=== PATIENT | female | born 1960 | race Caucasian/White ===

== ENCOUNTER 2018-09-16 08:26 | Inpatient (IN) ==
--- NOTE | 2018-08-30 09:01 | PAT Medication Instructions ---
Medication Instructions Date of Service August 30, 2018 Home Medications albuterol sulfate [ProAir HFA] 2 puff INHALATION QID PRN anastrozole 1 mg PO QAM calcium carbonate [Calcium 600] 600 mg PO QAM cholecalciferol (vitamin D3) 1,000 unit PO BID cyanocobalamin (vitamin B-12) 1,000 mcg PO TID digoxin 250 mcg PO QAM levothyroxine 150 mcg PO QAM ASK your prescriber and surgeon anastrozole 1 mg PO QAM DO NOT take the morning of surgery calcium carbonate [Calcium 600] 600 mg PO QAM cholecalciferol (vitamin D3) 1,000 unit PO BID cyanocobalamin (vitamin B-12) 1,000 mcg PO TID Take morning of surgery With a small sip of water, OTHERWISE NOTHING TO EAT OR DRINK AFTER MIDNIGHT: albuterol sulfate [ProAir HFA] 2 puff INHALATION QID PRN (use if needed; please bring with you to hospital day of surgery if possible) digoxin 250 mcg PO QAM levothyroxine 150 mcg PO QAM Take evening before surgery albuterol sulfate [ProAir HFA] 2 puff INHALATION QID PRN (if needed) cholecalciferol (vitamin D3) 1,000 unit PO BID cyanocobalamin (vitamin B-12) 1,000 mcg PO TID Other Notes If you have any questions please call us at [phone] or [phone] or [phone] or [phone]
--- NOTE | 2018-08-30 09:32 | Anesthesiology Consultation ---
Date of Service August 30, 2018 Assessment & Plan (1) Encounter for pre-operative examination: Chart Review Chart Review: Acceptable Risk for Surgery and Patient seen in Pre Admission Testing Consults Requested medical (Dr. Villalobos (09/11)) Patient was seen by PCP's office on 09/11/18 for preoperative evaluation. Per note from this visit, "Patient is optimized for right hip replacement". Teaching & Discussion Pre-Anesthesia Teaching/Discussion Notes: Instructed NPO after midnight before s urgery, except medications with 15 cc of water. Medication instructions provided according to the PAT guidelines. History Surgery Operation Date: 09/16/18 08:20 Proposed Procedures p Right Total Hip Arthroplasty - Jhonny Yoon Height/Weight Height: 5 ft 3 in Weight: 66.2 kg Allergies Allergy/AdvReac Type Severity Reaction Status Date / Time No Known Allergies Allergy Verified 08/26/18 10:00 Medications Home Medications Medication Instructions Recorded Confirmed Last Taken albuterol sulfate [ProAir HFA] 2 puff INHALATION QID PRN 08/26/18 08/26/18 Unknown anastrozole 1 mg PO QAM 08/26/18 08/26/18 Unknown calcium carbonate [Calcium 600] 600 mg PO QAM 08/26/18 08/26/18 Unknown cholecalciferol (vitamin D3) 1,000 unit PO BID 08/26/18 08/26/18 Unknown [Vitamin D3] cyanocobalamin (vitamin B-12) 1,000 mcg PO TID 08/26/18 08/26/18 Unknown [Vitamin B-12] digoxin 250 mcg PO QAM 08/26/18 08/26/18 Unknown levothyroxine 150 mcg PO QAM 08/26/18 08/26/18 Unknown Past Medical History Medical History Asthma History of breast cancer 2018 Hypothyroidism Mitral valve prolapse Osteoarthritis Past Surgical History Surgical History History of bilateral tubal ligation History of herniorrhaphy umbilical hernia repair as a child History of lumpectomy of left breast History of tonsillectomy History of tooth extraction WISDOM TEETH EXTRACTION Past Anesthesia History No Hx of Anesthesia Complications and No Family Hx of Anesthesia Complications History of PONV No Motion Sickness Screening History of Motion Sickness: No Social History Smoking Status: Never smoker Do You Dip or Chew Tobacco: No Hx Alcohol Use: Yes alcohol intake frequency: holidays/special occasions only Alcohol Intake Frequency Comment: VERY RARE Hx Substance Use: No substance use type: does not use Exercise / Class Metabolic Activity II 4-5 Yardwork/Stairs/Walk up hill ([employer]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 Able to climb stairs. Denies CP or SOB. ) Review of Systems Patient denies chest pain, shortness of breath, dyspnea on exertion, reflux, cough, wheezing, palpitations. +Joint Pain (Hip, Wrists) Physical Exam Vital Signs BP: 107/73 P: 76 R: 16 T: 98.1 SPO2: 97% on RA ENMT Thyromental Distance: < 3.5 Finger Breadths (3) Mallampati Class: II Extra tissue under tongue Neck normal visual inspection and trachea midline; neck extension not limited Respiratory normal respiratory effort Auscultation: lungs clear to auscultation bilaterally Cardiovascular Rate/Rhythm: regular rate and regular rhythm Heart Sounds: + murmur (2/6 systolic murmur) Vessels: no carotid bruit Neurologic moves all extremities Psychiatric Orientation: alert and oriented x 3 Testing Electrocardiogram Date: 08/30/18 Findings: + NSR @ (74) Right atrial enlargement. T wave abnormality, consider anterior ischemia. (No change from outside EKG which was done on 06/14/17, stress test - attached below - was normal) Chest X-Ray Date: 08/30/18 Findings: + NAD FINDINGS: Small left retrocardiac lobular density is indeterminate but favors a hiatus hernia. Otherwise, the lungs are clear. No pleural effusions. No pneumothorax. The heart is normal in size. Surgical clips noted within the left breast. IMPRESSION: 1. No acute process within the chest. 2. Small left retrocardiac lobular density is indeterminate but favors a hiatus hernia. Stress Test Date: 06/21/17 Type: nuclear (Lexiscan) The HR response to Lexiscan is normal, the BP response is nonspecific. The resting EKG reveals a sinus rhythm. There is ST flattening and T-wave inversions in the anterior leads at baseline; with Lexiscan, there is pseudonormalization of these changes. There are no significant ST-T changes seen as compared to the baseline. Impression: Lexiscan stress EKG is not indicative of ischemia. Laboratory Results 08/30/18 09:14 08/30/18 09:14 Blood Type O Positive 08/30/18 09:14 Antibody Screen NEGATIVE 08/30/18 09:14 PT 10.5 Seconds (9.0-12.0) 08/30/18 09:14 INR 1.0 (0.9-1.1) 08/30/18 09:14 APTT 24.8 Seconds (21.0-31.0) 08/30/18 09:14 Urine Color Yellow 08/30/18 09:14 Urine Appearance Clear (Clear) 08/30/18 09:14 Urine pH 7.5 (4.5-7.5) 08/30/18 09:14 Ur Specific [place] 1.017 (1.000-1.030) 08/30/18 09:14 Urine Protein Negative (Negative) 08/30/18 09:14 Urine Glucose (UA) Negative (Negative) 08/30/18 09:14 Urine Ketones Negative (Negative) 08/30/18 09:14 Urine Nitrite Negative (Negative) 08/30/18 09:14 Ur Leukocyte Esterase Trace (Negative) H 08/30/18 09:14 Urine WBC (Auto) 1-5 /hpf (0-5) 08/30/18 09:14 Urine RBC (Auto) 0-4 /hpf (0-4) 08/30/18 09:14 U Hyaline Cast (Auto) 0 /lpf (0-5) 08/30/18 09:14 U Epithel Cells (Auto) 0-5 /lpf (0-5) 08/30/18 09:14 Urine Bacteria (Auto) Negative (Negative) 08/30/18 09:14 08/30/18 09:14 Urine Culture - Final Urine,Clean Catch Three types of organisms present, all low counts probable skin phuc. No further identifications or sensitivities to follow.
--- NOTE | 2018-08-30 10:19 | XRay Report ---
XR chest Pre-admission PA/Lat HISTORY: Preop. COMPARISON: None. FINDINGS: Small left retrocardiac lobular density is indeterminate but favors a hiatus hernia. Otherw ise, the lungs are clear. No pleural effusions. No pneumothorax. The heart is normal in size. Surgica l clips noted within the left breast. IMPRESSION: 1. No acute process within the chest. 2. Small left retrocardiac lobular density is indeterminate but favors a hiatus hernia. Electronically signed by: Xavier Fairbanks M.D. 08/30/2018 10:17 AM
[2018-08-30 10:28] LABS: Basophils # (auto) 0.02 K/uL (0-0.2); Basophils % (auto) 0.5 %; Eosinophils # (auto) 0.22 K/uL (0-0.5); Hematocrit (blood only) 43.1 % (37-47); Hemoglobin 14.5 g/dL (12.0-16.0); Immature Granulocytes # (auto) 0.01 K/uL (0.00-0.02); Immature Granulocytes % (auto) 0.2 %; Lymphocytes # (auto) 1.12 K/uL (1.2-3.4); Lymphocytes % (auto) 25.3 %; Mean Corpuscular Hgb Conc 33.6 g/dL (32-36); Mean Platelet Volume 9.2 fL (7.4-10.4); Monocytes # (auto) 0.28 K/uL (0.11-0.59); Monocytes % (auto) 6.3 %; Neutrophils # (auto) 2.77 K/uL (1.4-6.5); Neutrophils % (auto) 62.7 %; Platelet Count 247 K/uL (130-400); RDW Coefficient of Variation 13.5 % (11.5-14.5); RDW Standard Deviation 44.2 fL (36.4-46.3); Red Blood Count 4.84 M/uL (4.2-5.4); White Blood Count 4.42 K/uL (4.8-10.8)
[2018-08-30 10:31] LABS: Appearance Urine Clear (Clear); Bacteria Urine Automated Negative (Negative); Bilirubin Urine Negative (Negative); Blood Urine Negative (Negative); Cast Urine Automated 0 /lpf (0-5); Color Urine Yellow; Epithelial Cell Urine Auto 0-5 /lpf (0-5); Glucose Urine UA Negative (Negative); Ketones Urine Negative (Negative); Leukocyte Esterase Urine Trace (Negative); Nitrite Urine Negative (Negative); Protein Urine Negative (Negative); RBC Urine Automated 0-4 /hpf (0-4); Specific Gravity Urine 1.017 (1.000-1.030); Urobilinogen Urine Negative (Negative); pH Urine 7.5 (4.5-7.5)
[2018-08-30 10:34] LABS: Albumin Level 3.3 gm/dl (3.4-5.0); BUN Creatinine Ratio 19.6 (10-20); Calcium 9.3 mg/dl (8.5-10.1); Creatinine Clr Calc Pharmacy 79.3 ml/min; Est GFR (African American) 109.7; Est GFR (Non-African American) 94.6
[2018-08-30 10:37] LABS: Albumin Globulin Ratio 0.9 (0.9-2); Bilirubin,Total 0.3 mg/dl (0.2-1); Globulin 3.8 gm/dl (2.5-4.0); Total Protein 7.1 gm/dl (6.4-8.2)
[2018-08-30 10:39] LABS: Partial Thromboplastin Ratio 0.9; Partial Thromboplastin Time 24.8 Seconds (21.0-31.0); Prothrombin Time 10.5 Seconds (9.0-12.0)
--- NOTE | 2018-09-14 14:31 | History & Physical Report ---
Date of Service September 14, 2018 Assessment & Plan (1) Degenerative joint disease of right hip: plan is to admit and undergo right lokesh. History of Present Illness Chief Complaint: right hip pain Primary Care Provider: Tia Genao Pt with pain for years in right hip. Has tried nsaid, injections, and therapy with no relief. pt is ready for lokesh right. Allergies Allergy/AdvReac Type Severity Reaction Status Date / Time No Known Allergies Allergy Verified 08/26/18 10:00 Home Medications Home Medications Medication Instructions Recorded Confirmed Type albuterol sulfate [ProAir HFA] 2 puff INHALATION QID PRN 08/26/18 08/26/18 History anastrozole 1 mg PO QAM 08/26/18 08/26/18 History calcium carbonate [Calcium 600] 600 mg PO QAM 08/26/18 08/26/18 History cholecalciferol (vitamin D3) 1,000 unit PO BID 08/26/18 08/26/18 History [Vitamin D3] cyanocobalamin (vitamin B-12) 1,000 mcg PO TID 08/26/18 08/26/18 History [Vitamin B-12] digoxin 250 mcg PO QAM 08/26/18 08/26/18 History levothyroxine 150 mcg PO QAM 08/26/18 08/26/18 History Past Med/Surg History Medical History Asthma History of breast cancer 2018 Hypothyroidism Mitral valve prolapse Osteoarthritis Surgical History History of bilateral tubal ligation History of herniorrhaphy umbilical hernia repair as a child History of lumpectomy of left breast History of tonsillectomy History of tooth extraction WISDOM TEETH EXTRACTION Social History Preferred Language: Syrian Communication Ability: Effective Public Health Staff Nurse Required: No Beliefs That Will Affect Care: None Current Living Situation: Spouse Other Information That Helps Us Care for You: No Feels Safe at Home: Yes Safety Concerns: Feels Safe At This Time Smoking Status: Never smoker Do You Dip or Chew Tobacco: No Second Hand Exposure: No Tobacco Cessation Education Requested by Patient: No Hx Alcohol Use: Yes Hx Substance Use: No Review of Systems All systems reviewed & are unremarkable except as noted in HPI & below Physical Exam Constitutional: WD/WN, vitals as above Respiratory: normal respiratory effort, lungs clear to auscultation Cardiovascular: RRR, no murmur, no edema Gastrointestinal (Abdomen): normal bowel sounds, soft, nontender, no hepatosplenomegaly Musculoskeletal: Hip: + limited ROM of hip and + hip ROM with crepitation
[~2018-09-16 08:26] MED LIST: ACETAMINOPHEN 500 MG TAB PO SCH; BUPIVACAINE 0.5 % 5 MG/1 ML PF 10ML VIAL ONE; CEFAZOLIN 1000MG 1,000 MG/7.5 ML SYR IV SCH; CeleBREX 200 MG CAP PO SCH; FAMOTIDINE 20 MG TAB PO SCH; LR 500ML BOLUS, THEN 15ML/HR IV SCH; LR 60ML/HR IV SCH; METOCLOPRAMIDE HCL 10 MG TABLET PO SCH; ROPIVACAINE 0.5% HCL/PF 150 MG, BUPIVACAINE 0.5% MPF 30 ML, EPINEPHrine 30MG/30ML (OR U... INFIL SCH; TRANEXAMIC ACID 1,000 MG **IV Intra-op IV SCH; TRANEXAMIC ACID 1,000 MG **IV Pre-op IV SCH; dexAMETHasone 4 MG TAB PO SCH
[2018-09-16] MEDS ORDERED: PROPOFOL IV EMULSION 10 MG/ML 20 ML VIAL IV ONE ×2 (08:27→10:36)
[2018-09-16] MEDS ORDERED: ePHEDrine sulfate 50 MG/ML SYR ONE (08:27)
[2018-09-16] MEDS ORDERED: fentaNYL citrate 100 MCG/2 ML VIAL ONE (08:27)
[2018-09-16] MEDS ORDERED: PHENYLEPHRINE 100MCG/ML 5ML SYR ONE (08:27)
[2018-09-16] MEDS ORDERED: LIDOCAINE HCL 2% 2 ML VIAL/AMP(20MG/ML) INFIL ONE (08:27)
[2018-09-16] MEDS ORDERED: MIDAZOLAM HCL 1 MG/ML 2ML VIAL ONE (08:27)
[2018-09-16] MEDS ORDERED: ePHEDrine sulfate 50 MG/ML AMP IV PRN (09:07)
[2018-09-16] MEDS ORDERED: ATROPINE SULFATE 0.1 MG/ML 10ML SYR IV PRN (09:07)
[2018-09-16] MEDS ORDERED: ONDANSETRON INJ 2 MG/ML 2 ML VIAL IV PRN ×2 (09:07→12:58)
[2018-09-16] MEDS ORDERED: fentaNYL citrate 100 MCG/2 ML VIAL IV PRN (09:07)
--- NOTE | 2018-09-16 09:15 | History & Physical Bridge Note ---
Date of Service September 16, 2018 History & Physical Bridge Note I have examined the patient, reviewed the History & Physical and in the interval since the performance of the History & Physical I have noted the following changes of clinical significance: no changes noted
[2018-09-16] MEDS ORDERED: BACITRACIN INJ 50,000 UNIT VIAL ONE (09:38)
[2018-09-16] MEDS ORDERED: ORTHO JOINT ANESTHETIC ONE (09:38)
[2018-09-16] MEDS ORDERED: POVIDONE-IODINE OP SOLN 30 ML BTL ONE (09:39)
--- NOTE | 2018-09-16 11:13 | Operative Report ---
Post Operative Report Pre & Post Diagnosis Operation Date: 09/16/18 11:00 Pre-Op Diagnosis: Right Hip Degenerative Joint disease Post-Op Diagnosis: Right Hip Degenerative Joint disease Procedure Operation Date: 09/16/18 11:00 Actual Procedures p Right Total Hip Arthroplasty(Right) - Jhonny Yoon Surgeon Jhonny Yoon Securities Supervisor Evin Zuh PA-C Estimated Blood Loss 30 Findings Consistent with Post-Op Diagnosis Specimens None Complications none Disposition Accompanied Patient To Recovery: No Disposition: Recovery Room Description of Procedure IMPLANTS USED: Marlene size 50 mm Trident 2 Tritanium acetabular cup, one fanny tabular screw, a 36 mm X3 neutral liner, a #3 Accolade 2 stem with a 127 degree neck, 36 mm +5 ceramic head INDICATIONS: [(Mrs Owusu is a pleasant [female)] who has unfortunately failed all forms of conservative measures. Therefore, they have has decided to undergo elective surgical intervention. All risks and benefits of the surgery were discussed with the patient and the family in entirety. PROCEDURE: The patient was brought to the operating room and properly identified by myself, anesthesia, and staff. Patient was given a [(spinal] anesthetic and placed on the operating table with the [right)] hip up. The hip was then prepped and draped in the standard orthopedic fashion. We made a standard posterolateral approach over the greater trochanteric area. We then dissected down to subcutaneous tissue until the fascia was identified. We incised the fascia in line with the skin incision. We then split the gluteus jamey muscles with finger dissection. We then put the Charnley retractor in place. We placed the retractor underneath the gluteus medius to expose the piriformis. The piriformis was then tagged with a tag suture and released from the insertion from the greater trochanteric area with the use of electrocautery. We then performed a T capsulotomy and the femoral head and neck were atraumatically dislocated. We then performed femoral neck osteotomy at the pre- template site. We removed the femoral head and neck without difficulty. We then placed the retractor around the acetabulum. We then began to ream the acetabulum to the appropriate size. We then impacted the cup into place and had a very good fixation within the pelvis. We then put the liner in place as well. Then using multiple size approaches from the Accolade 2 system a size #3 fit very nicely in the proximal femur. I then put trial components in place. WE had very good range of motion, excellent stability, and excellent leg length equality. We removed the trial components and irrigated the wound. We then impacted the components in place and irrigated the wound once more. We then closed the capsule and fascia with a 0 Vicryl suture, the deep dermis with 2-0 Vicryl suture, and finally the skin with a running 3-0 Vicryl subcuticular stitch. A sterile dressing was applied. The patient was taken to the recovery room in stable condition. Due to the complex nature of the procedure, the entire surgery was performed with the operational assistance of Evin DC)Jaclyn. The operations and intelligence assistant was under direct supervision, was involved in the actual performance of all aspects of the surgical procedure including hemostasis, tissue retraction and incision, instrument management, patient positioning, and wound closure. I attest to the content of the Intraoperative Record and any orders documented therein. Any exceptions are noted below.
[2018-09-16] MEDS ORDERED: METOCLOPRAMIDE HCL INJ 5 MG/ML 2 ML VIAL IV PRN (12:58)
[2018-09-16] MEDS ORDERED: BISACODYL 10 MG SUPP PR PRN (12:58)
[2018-09-16] MEDS ORDERED: NALOXONE HCL 0.4 MG/1 ML VIAL/CARP IV PRN (12:58)
[2018-09-16] MEDS ORDERED: MAGNESIUM HYDROXIDE SUSP 30 ML UDC PO PRN (12:58)
[2018-09-16] MEDS ORDERED: OXYCODONE HCL IR 5 MG TAB (IMMEDIATE RELEASE) PO PRN (12:58)
[2018-09-16] MEDS ORDERED: TRAMADOL HCL 50 MG TABLET PO PRN (12:58)
[2018-09-16] MEDS: SODIUM CHLORIDE 0.9% 1000ML 1,000 ML IV SCH (13:33)
--- NOTE | 2018-09-16 13:44 | Anesthesiology Progress Note ---
Date of Service September 16, 2018 Anesthesia Post Procedure Vital Signs Vital Signs: Temp Pulse Pulse Pulse Resp BP Pulse Ox 09/16/18 13:40 84 16 109/68 99 09/16/18 13:11 83 16 109/62 99 09/16/18 12:45 36.4 C L 78 14 111/63 99 09/16/18 12:30 76 18 111/62 98 09/16/18 12:20 36.5 C 78 17 109/58 L 98 09/16/18 12:10 77 19 111/57 L 99 09/16/18 12:00 78 17 111/62 98 09/16/18 11:50 74 21 102/62 99 09/16/18 11:40 74 15 107/59 L 100 09/16/18 11:30 36.1 C L 79 15 118/49 L 100 09/16/18 09:02 36.7 C 74 18 145/81 H 99 Notes Mental Status: alert / awake / arousable Patient Amnestic to Procedure: Yes Nausea / Vomiting: adequately controlled Pain: adequately controlled Airway Patency, RR, SpO2: stable & adequate BP & HR: stable & adequate Hydration State: stable & adequate Neuraxial Anesthesia: was administered and sensory block is resolving Anesthetic Complications: no major complications apparent and Pt Satisfied with anesthetic care
[2018-09-16] MEDS ORDERED: ALBUTEROL HFA 8 GM INHALER INH PRN (13:45)
[2018-09-16] MEDS ORDERED: TRANEXAMIC ACID 1,000 MG in 0.9 % SODIUM CHLORIDE 100 ML IV SCH (17:04)
[2018-09-16] MEDS: CEFAZOLIN 2000MG 2,000 MG/15 ML SYR IV SCH (17:41)
[2018-09-16] MEDS: ACETAMINOPHEN 500 MG TAB PO SCH (17:41)
[2018-09-16] MEDS: DOCUSATE SODIUM 100 MG CAP PO SCH (20:21)
[2018-09-16] MEDS ORDERED: SENNA 8.6 MG TAB PO SCH (21:00)
[2018-09-17] MEDS: SODIUM CHLORIDE 0.9% 1000ML 1,000 ML IV SCH
[2018-09-17] MEDS: CEFAZOLIN 2000MG 2,000 MG/15 ML SYR IV SCH (03:12)
[2018-09-17] MEDS: ACETAMINOPHEN 500 MG TAB PO SCH ×2 (05:40→13:47)
[2018-09-17 05:45] LABS: Hematocrit (blood only) 38.4 % (37-47); Hemoglobin 12.4 g/dL (12.0-16.0); Immature Granulocytes # (auto) 0.02 K/uL (0.00-0.02); Immature Granulocytes % (auto) 0.1 %; Lymphocytes # (auto) 0.79 K/uL (1.2-3.4); Lymphocytes % (auto) 5.3 %; Mean Corpuscular Hgb Conc 32.3 g/dL (32-36); Mean Corpuscular Volume 90.6 fL (80-100); Monocytes # (auto) 0.83 K/uL (0.11-0.59); Monocytes % (auto) 5.6 %; Neutrophils # (auto) 13.29 K/uL (1.4-6.5); Platelet Count 225 K/uL (130-400); RDW Coefficient of Variation 13.7 % (11.5-14.5); RDW Standard Deviation 45.5 fL (36.4-46.3); Red Blood Count 4.24 M/uL (4.2-5.4); White Blood Count 14.93 K/uL (4.8-10.8)
[2018-09-17 06:22] LABS: BUN Creatinine Ratio 18.8 (10-20); Calcium 8.2 mg/dl (8.5-10.1); Creatinine Clr Calc Pharmacy 64.1 ml/min; Est GFR (African American) 86.3; Est GFR (Non-African American) 74.5; Potassium 4.3 mmol/L (3.5-5.1)
[2018-09-17] MEDS ORDERED: LEVOTHYROXINE SODIUM 150 MCG TABLET PO SCH (06:30)
[2018-09-17] MEDS ORDERED: dexAMETHasone 10 MG in SYRINGE 0 ML IV SCH (08:00)
--- NOTE | 2018-09-17 08:24 | Anesthesiology Progress Note ---
Date of Service September 17, 2018 Anesthesia Post Procedure Vital Signs Vital Signs: Temp Pulse Pulse Pulse Resp BP Pulse Ox 09/17/18 07:35 36.6 C 72 16 131/76 98 09/17/18 03:14 36.5 C 75 14 131/67 98 09/16/18 23:06 36.7 C 85 14 124/72 95 09/16/18 15:45 36.3 C L 82 16 117/67 97 09/16/18 14:45 80 16 101/65 97 09/16/18 13:40 84 16 109/68 99 09/16/18 13:11 83 16 109/62 99 09/16/18 12:45 36.4 C L 78 14 111/63 99 09/16/18 12:30 76 18 111/62 98 09/16/18 12:20 36.5 C 78 17 109/58 L 98 09/16/18 12:10 77 19 111/57 L 99 09/16/18 12:00 78 17 111/62 98 09/16/18 11:50 74 21 102/62 99 09/16/18 11:40 74 15 107/59 L 100 09/16/18 11:30 36.1 C L 79 15 118/49 L 100 09/16/18 09:02 36.7 C 74 18 145/81 H 99 Pain Intensity Right Leg: Pain Intensity: 1 Notes Mental Status: alert / awake / arousable Patient Amnestic to Procedure: Yes Nausea / Vomiting: adequately controlled Pain: adequately controlled Airway Patency, RR, SpO2: stable & adequate BP & HR: stable & adequate Hydration State: stable & adequate Neuraxial Anesthesia: was administered and sensory block resolved Anesthetic Complications: no major complications apparent
[2018-09-17] MEDS: DOCUSATE SODIUM 100 MG CAP PO SCH (08:42)
[2018-09-17] MEDS ORDERED: ANASTROZOLE 1 MG TAB PO SCH (09:00)
[2018-09-17] MEDS ORDERED: RIVAROXABAN 10 MG TABLET PO SCH (09:00)
[2018-09-17] MEDS ORDERED: DIGOXIN 0.25 MG TAB PO SCH (09:00)
--- NOTE | 2018-09-17 14:37 | Orthopedic Progress Note ---
Date of Service September 17, 2018 Assessment & Plan (1) Degenerative joint disease of right hip: POD 1 s/p Right MELODY PT/OT DVT prophylaxis with Rivaroxaban,SCD's,YVONNE's Continue current pain regimen DC planning - home with home health today. Subjective POD 1 s/p Right MELODY Pt sitting in chair at bedside. No complaints. Comfortable. Denies SOB, CP, LH. Planning for dc today if she does well in PT. Pain controlled. Physical Exam Physical Exam: Silverlon is C/D/I. Calves are soft, NT. NV intact. Hip located. Results & Data Vital Signs (Past 12 Hours) Vital Signs Temp Pulse Pulse Resp BP Pulse Ox 09/17/18 12:00 36.9 C 74 16 126/74 97 09/17/18 08:43 72 09/17/18 07:35 36.6 C 72 16 131/76 98 09/17/18 03:14 36.5 C 75 14 131/67 98 Laboratory Results Laboratory Results WBC 14.93 K/uL (4.8-10.8) H 09/17/18 05:25 RBC 4.24 M/uL (4.2-5.4) 09/17/18 05:25 Hgb 12.4 g/dL (12.0-16.0) 09/17/18 05:25 Hct 38.4 % (37-47) 09/17/18 05:25 MCV 90.6 fL (80-100) 09/17/18 05:25 MCH 29.2 pg (25-34) 09/17/18 05:25 MCHC 32.3 g/dL (32-36) 09/17/18 05:25 RDW Std Deviation 45.5 fL (36.4-46.3) 09/17/18 05:25 RDW Coeff of Dorina 13.7 % (11.5-14.5) 09/17/18 05:25 Plt Count 225 K/uL (130-400) 09/17/18 05:25 MPV 9.0 fL (7.4-10.4) 09/17/18 05:25 Immature Gran % (Auto) 0.1 % 09/17/18 05:25 Neut % (Auto) 89.0 % 09/17/18 05:25 Lymph % (Auto) 5.3 % 09/17/18 05:25 [place] % (Auto) 5.6 % 09/17/18 05:25 Eos % (Auto) 0.0 % 09/17/18 05:25 Baso % (Auto) 0.0 % 09/17/18 05:25 Immature Gran # (Auto) 0.02 K/uL (0.00-0.02) 09/17/18 05:25 Neut # (Auto) 13.29 K/uL (1.4-6.5) H 09/17/18 05:25 Lymph # (Auto) 0.79 K/uL (1.2-3.4) L 09/17/18 05:25 [place] # (Auto) 0.83 K/uL (0.11-0.59) H 09/17/18 05:25 Eos # (Auto) 0.00 K/uL (0-0.5) 09/17/18 05:25 Baso # (Auto) 0.00 K/uL (0-0.2) 09/17/18 05:25 PT 10.5 Seconds (9.0-12.0) 08/30/18 09:14 INR 1.0 (0.9-1.1) 08/30/18 09:14 APTT 24.8 Seconds (21.0-31.0) 08/30/18 09:14 PTT Ratio 0.9 08/30/18 09:14 Sodium 138 mmol/L (136-145) 09/17/18 05:25 Potassium 4.3 mmol/L (3.5-5.1) 09/17/18 05:25 Chloride 108 mmol/L (98-107) H 09/17/18 05:25 Carbon Dioxide 24 mmol/L (21-32) 09/17/18 05:25 Anion Gap 6.0 (3-11) 09/17/18 05:25 BUN 16 mg/dl (7-18) 09/17/18 05:25 Creatinine 0.85 mg/dl (0.6-1.2) 09/17/18 05:25 Est Cr Clr Drug Dosing 64.1 ml/min 09/17/18 05:25 Est GFR ( Amer) 86.3 09/17/18 05:25 Est GFR (Non-Af Amer) 74.5 09/17/18 05:25 BUN/Creatinine Ratio 18.8 (10-20) 09/17/18 05:25 Glucose 116 mg/dl (70-99) H 09/17/18 05:25 Calcium 8.2 mg/dl (8.5-10.1) L 09/17/18 05:25 Total Bilirubin 0.3 mg/dl (0.2-1) 08/30/18 09:14 AST 12 U/L (15-37) L 08/30/18 09:14 ALT 19 U/L (12-78) 08/30/18 09:14 Alkaline Phosphatase 80 U/L (45-117) 08/30/18 09:14 Total Protein 7.1 gm/dl (6.4-8.2) 08/30/18 09:14 Albumin 3.3 gm/dl (3.4-5.0) L 08/30/18 09:14 Globulin 3.8 gm/dl (2.5-4.0) 08/30/18 09:14 Albumin/Globulin Ratio 0.9 (0.9-2) 08/30/18 09:14 Urine Color Yellow 08/30/18 09:14 Urine Appearance Clear (Clear) 08/30/18 09:14 Urine pH 7.5 (4.5-7.5) 08/30/18 09:14 Ur Specific [place] 1.017 (1.000-1.030) 08/30/18 09:14 Urine Protein Negative (Negative) 08/30/18 09:14 Urine Glucose (UA) Negative (Negative) 08/30/18 09:14 Urine Ketones Negative (Negative) 08/30/18 09:14 Urine Blood Negative (Negative) 08/30/18 09:14 Urine Nitrite Negative (Negative) 08/30/18 09:14 Urine Bilirubin Negative (Negative) 08/30/18 09:14 Urine Urobilinogen Negative (Negative) 08/30/18 09:14 Ur Leukocyte Esterase Trace (Negative) H 08/30/18 09:14 Urine WBC (Auto) 1-5 /hpf (0-5) 08/30/18 09:14 Urine RBC (Auto) 0-4 /hpf (0-4) 08/30/18 09:14 U Hyaline Cast (Auto) 0 /lpf (0-5) 04/05/19 09:14 U Epithel Cells (Auto) 0-5 /lpf (0-5) 08/30/18 09:14 Urine Bacteria (Auto) Negative (Negative) 08/30/18 09:14 Nasal Screen MRSA (PCR) Negative (Negative) 08/30/18 09:14 Blood Type O Positive 08/30/18 09:14 Antibody Screen NEGATIVE 08/30/18 09:14
--- NOTE | 2018-09-21 01:26 | Discharge Summary ---
DISCHARGE DIAGNOSIS: Degenerative joint disease, right hip. SECONDARY DIAGNOSES: Asthma, history of breast carcinoma, hypothyroidism, mitral valve prolapse and osteoarthritis. CONSULTS: None. COMPLICATIONS: None. PROCEDURES: Right total hip arthroplasty performed by Dr. Yoon on 09/16/2018. BRIEF HISTORY: As dictated in history and physical. HOSPITAL SUMMARY: The patient was admitted on the above date and had the above noted surgery performed, which she tolerated well. On the first postoperative day, the patient was sitting in her chair at the bedside. No complaints, comfortable. Denies shortness of breath, chest pain or lightheadedness. She was planning for discharge. She was doing well in physical therapy and her pain was controlled. Silverlon dressings were clean, dry and intact. Calves were soft and nontender. Neurovascularly intact. Hip was located. Vital signs were stable. She was afebrile. Hemoglobin was 12.4. She was started on physical therapy protocol and continued on deep venous thrombosis prophylaxis and pain management. She progressed well with physical therapy, ambulating independently and going up and down steps and it was felt she could be discharged to home with home health services on 09/17/2018. For further review, please see chart. LABORATORY AND X-RAY DATA: As per chart. DISCHARGE INSTRUCTIONS: The patient was discharged home in satisfactory condition on 09/17/2018. DIET: Regular. ACTIVITY: Weightbearing as tolerated left lower extremity. Follow MELODY instruction sheets per Dr. Yoon's instructions and follow up with him in 2 weeks. The patient is to call for an appointment if one has not been made for. DISCHARGE MEDICATIONS: Acetaminophen 1000 mg p.o. q. 8 hours, cefadroxil 500 mg p.o. b.i.d., sennoside 17.2 mg p.o. at bedtime and Xarelto 10 mg p.o. daily. Resume home medications as listed.
== END 2018-09-17 16:29 | disposition home health service (06) | DRG 470 ==
LOC: ASU 08:26 → 3E 12:46